=== PATIENT | female | born 2000 | race American Indian/Alaskan Native ===

== ENCOUNTER 2020-09-26 16:30 | Emergency (ER) | payer OTHER ==
[2020-09-26 18:27] VITALS: BP 111/78
== END 2020-09-26 22:27 | disposition home or self-care (01) ==
LOC: ED 16:30
DX: M62.838 Other muscle spasm (principal); M62.830 Muscle spasm of back; J45.909 Unspecified asthma, uncomplicated; D64.9 Anemia, unspecified; Z79.899 Other long term (current) drug therapy; Z88.8 Allergy status to other drugs, medicaments and biological substances; V49.59XA Passenger injured in collision with other motor vehicles in traffic accident, initial encounter; Y92.410 Unspecified street and highway as the place of occurrence of the external cause; Y93.89 Activity, other specified; Y99.8 Other external cause status
CPT/HCPCS: 70450; 72040; 72100; 81001; 81025

== ENCOUNTER 2021-06-22 12:33 | Emergency (ER) | payer SELFPAY ==
[2021-06-22 13:11] VITALS: BP 107/64
[2021-06-22] MEDS ORDERED: ACETAMINOPHEN 500 MG TAB PO ONE (17:16)
[2021-06-22] MEDS ORDERED: IBUPROFEN 400 MG TAB PO ONE (17:16)
--- NOTE | 2021-06-22 17:17 | Emergency Department Report ---
ED General Adult HPI - General Chief complaint: Head Injury Stated complaint: HEAD/FACE/NECK/RIGHT HAND PAIN Time Seen by Provider: 06/22/21 17:14 Source: patient, RN notes reviewed, old records reviewed Mode of arrival: Ambulatory Limitations: No Limitations - History of Present Illness Initial comments: The patient is a 20-year-old female, who is right-hand dominant, who states that she is not , presenting to the ER today with a complaint of subacute global headache, paracervical neck pain and right-sided head pain, after a heavy object fell on her about 6 days ago. No additional injuries or complaints. This happened while at work. Taking ibuprofen [id number]. Does not have Worker's Compensation mechanism in place that she is aware of. Denies additional injuries and complaints -: days(s) Location: head, neck, right, upper extremity Quality: aching Consistency: constant Improves with: rest Worsens with: movement Associated Symptoms: denies other symptoms - Related Data Previous Rx's Medication Instructions Recorded Last Taken Type Acetaminophen [Acetaminophen TAB] 500 mg PO Q6HR PRN #24 tablet 06/22/21 Unknown Rx Ibuprofen [Motrin 400 MG tab] 400 mg PO Q8H PRN #24 tablet 06/22/21 Unknown Rx Allergies Allergy/AdvReac Type Severity Reaction Status Date / Time erythromycin base Allergy Hives Verified 09/26/20 18:23 ED Review of Systems ROS: Stated complaint: HEAD/FACE/NECK/RIGHT HAND PAIN Other details as noted in HPI Comment: All other systems reviewed and negative Musculoskeletal: arthralgia, myalgia Neurological: headache ED Past Medical Hx - Past Medical History Hx Asthma: Yes Additional medical history: anemia - Medications Home Medications: Home Medications Medication Instructions Recorded Confirmed Last Taken Type Acetaminophen [Acetaminophen TAB] 500 mg PO Q6HR PRN #24 tablet 06/22/21 Unknown Rx Ibuprofen [Motrin 400 MG tab] 400 mg PO Q8H PRN #24 tablet 06/22/21 Unknown Rx ED Physical Exam - General Limitations: No Limitations General appearance: alert, in no apparent distress - Head Head exam: Present: atraumatic, normocephalic - Eye Eye exam: Present: normal appearance, EOMI. Absent: nystagmus - ENT ENT exam: Present: normal exam, normal orophraynx, mucous membranes moist, normal external ear exam - Neck Neck exam: Present: normal inspection, full ROM. Absent: tenderness, meningismus - Respiratory Respiratory exam: Present: normal lung sounds bilaterally. Absent: respiratory distress, wheezes, rales, rhonchi, stridor, decreased breath sounds - Cardiovascular Cardiovascular Exam: Present: regular rate, normal rhythm, normal heart sounds. Absent: bradycardia, tachycardia, irregular rhythm, systolic murmur, diastolic murmur, rubs, gallop - GI/Abdominal GI/Abdominal exam: Present: soft. Absent: distended, tenderness, guarding, rebound, rigid, pulsatile mass - Extremities Exam Extremities exam: Present: normal inspection, full ROM, normal capillary refill, other (2+ pulses noted in the bilateral upper and lower extremities. There is no palpable cord. negative Homans sign. Muscular compartments are soft. The pelvis is stable.). Absent: pedal edema, calf tenderness - Back Exam Back exam: Present: normal inspection, full ROM. Absent: tenderness, CVA tenderness (R), CVA tenderness (L), muscle spasm, paraspinal tenderness, vertebral tenderness - Neurological Exam Neurological exam: Present: alert, oriented X3, normal gait, other (No facial droop. Tongue midline. Extraocular movements intact bilaterally. Facial sensation intact to light touch in V1, V2, V3 distribution bilaterally. 5 and a 5 strength in 4 extremities. Sensation intact to light touch in 4 extremities.). Absent: motor sensory deficit - Psychiatric Psychiatric exam: Present: normal affect, normal mood - Skin Skin exam: Present: warm, dry, intact, normal color. Absent: rash ED Course Vital Signs 06/22/21 13:06 Temperature 99.0 F Pulse Rate 88 Respiratory 16 Rate Blood Pressure 107/64 [Left] O2 Sat by Pulse 100 Oximetry - Reevaluation(s) Reevaluation #1: 06/22/21 17:30 GCS of 15. Ambulatory with a steady gait. 6 days status post event. No indication for advanced imaging ED Medical Decision Making - Lab Data Vital Signs 06/22/21 13:06 Temperature 99.0 F Pulse Rate 88 Respiratory 16 Rate Blood Pressure 107/64 [Left] O2 Sat by Pulse 100 Oximetry - Medical Decision Making Differential diagnosis, including but not limited to: Closed head injury, concussion, sprain, strain assessment and plan: 20-year-old female, who is afebrile, with reassuring vital signs, clinically sober, with a GCS of 15 patient is clinically sober at this time. The cervical spine is cleared through nexus and mosoth[place] c spine rule who is presenting 6 days after mild blunt trauma. Physical exam unremarkable. Patient ambulatory with a steady gait, and noted to be on her cellular phone and in no acute distress. Advised patient as to why imaging is not indicated. Advised patient of natural history of mild blunt trauma. Rest, ice, compression, elevation, Tylenol, Motrin, outpatient follow-up with primary care. Further advised patient to follow-up with her outpatient primary care doctor, or Worker's Compensation physician at work. Specifically explained to patient why advanced imaging or any imaging is not necessary at this time. She is not tender at this time Critical care attestation.: If time is entered above; I have spent that time in minutes in the direct care of this critically ill patient, excluding procedure time. ED Disposition Clinical Impression: Muscle ache, Right hand pain, Closed head injury Disposition: 01 HOME / SELF CARE / HOMELESS Is pt being admited?: No Does the pt Need Aspirin: No Condition: Good Instructions: Hand Pain, Head Injury, Adult Additional Instructions: As we discussed, pain typically gets worse before it gets better after mild blunt trauma rest and avoid heavy lifting, and avoid strenuous physical activity. Engage in physical activities as tolerated. For pain, the patient can take ibuprofen, 400 mg with food every 6 hours, alternating with acetaminophen, 500 mg mg every 4 hours, also which can be purchased [id number]. Return to the ER right away with new pain, worsened pain, migration of pain, fevers, chills, confusion, weakness, numbness, intractable nausea or vomiting, severe chest pain, or severe abdominal pain. Recommend follow-up with your employer/direct supervisor [employer], to clarify their policy on Worker's Compensation related injuries, and work-related injuries. Please return to the emergency room right away with new pain, worsened pain, migration of pain, projectile vomiting, change in mental status, confusion, inability tolerate liquid feeds, new, worsened or different symptoms not present on the initial emergency room evaluation Referrals: [facility] [Provider Group] - 3-5 Days Forms: Work/School Release Form(ED)
== END 2021-06-22 18:00 | disposition home or self-care (01) ==
LOC: ED 12:33
DX: S09.90XA Unspecified injury of head, initial encounter (principal); M79.601 Pain in right arm; J45.909 Unspecified asthma, uncomplicated; M79.18 Myalgia, other site; M54.2 Cervicalgia; Z79.899 Other long term (current) drug therapy; W22.8XXA Striking against or struck by other objects, initial encounter; Y93.89 Activity, other specified; Y92.89 Other specified places as the place of occurrence of the external cause; Y99.8 Other external cause status
CPT/HCPCS: 99282